=== PATIENT | female | born 1930 | race Caucasian/White ===

== ENCOUNTER 2018-09-23 15:05 | Emergency (ER) | payer OTHER ==
[~2018-09-23] VITALS: Ht 157.5 cm; Wt 98.9 kg
[~2018-09-23 15:05] MED LIST: ASPI81CH PO; ASPI81EC PO; ATEN100; ATEN100 PO; ATEN50 PO; ATOR10; ATOR20 PO; BUME1 PO; CEPH500 PO; CIPR250 PO; Cleocin HCl150 MG PO; Duoneb 2.5-0.5 M3 ML INH; FLUT44OIA INH; FURO40 PO; HYDR1TAB94 PO; LOSA25 PO; MECL25 PO; METF500 PO; Norco 5-325 Ta1 EACH PO; ONDA4ODT MM; OTC EYE VITAMIN; POTA10T PO; POTCHL20ER PO; PRED10 PO; PRED5 PO; Prednisone10 MG PO; WARF10; WARF2 PO; WARF5 PO; WARF7.5 PO; Zithromax250 MG PO; Zofran Odt4 MG SL
[2018-09-23 16:18] LABS: BASOPHILS ABSOLUTE AUTO 0.06 K/mm3 (0.00-0.23); BASOPHILS PERCENT AUTO 0 % (0-2); EOSINOPHILS ABSOLUTE AUTO 0.34 K/mm3 (0.00-0.68); EOSINOPHILS PERCENT AUTO 2 % (0-6); Hematocrit 45.2 % (33.0-51.0); Hemoglobin 14.7 g/dL (11.5-16.0); IMMATURE GRAN ABSOLUTE AUTO 0.08 K/mm3 (0.00-0.10); IMMATURE GRAN PERCENT AUTO 1 % (0-1); LYMPHOCYTES ABSOLUTE AUTO 3.35 K/mm3 (0.84-5.20); LYMPHOCYTES PERCENT AUTO 24 % (21-46); MONOCYTES ABSOLUTE AUTO 1.31 K/mm3 (0.16-1.47); MONOCYTES PERCENT AUTO 9 % (4-13); Mean Corpuscular HGB 29.6 pg (26.0-34.0); Mean Corpuscular HGB Conc 32.5 g/dL (31.5-36.5); Mean Corpuscular Volume 91 fL (80-100); NEUTROPHILS ABSOLUTE AUTO 9.07 K/mm3 (1.96-9.15); NEUTROPHILS PERCENT AUTO 64 % (41-73); Platelet Count 63 K/mm3 (150-400); RDW Coefficient Variation 12.8 % (11.7-14.2); RDW Standard Deviation 42.4 fL (35.1-46.3); Red Blood Cell Count 4.97 M/mm3 (3.80-5.20); White Blood Cell Count 14.21 K/mm3 (4.00-11.30)
[2018-09-23 16:35] LABS: Albumin, Blood 3.4 g/dL (3.4-5.0); Albumin/Globulin Ratio 0.8 (0.8-1.8); Bilirubin, Total 1.2 mg/dL (0.1-1.0); Bun/Creatinine Ratio 10.5 (12.0-20.0); Calcium, Blood 8.9 mg/dL (8.5-10.1); Creatinine, Blood 0.96 mg/dL (0.40-1.00); Globulin, Blood 4.2 g/dL (2.2-4.0); Potassium, Blood 3.8 mmol/L (3.5-5.5); Total Protein, Blood 7.6 g/dL (6.4-8.2)
[2018-09-23] MEDS ORDERED: Bactrim Ds Tab1 EACH PO (17:11)
[2018-09-23] MEDS ORDERED: CEPH500 PO (17:11)
== END 2018-09-23 17:56 | disposition home or self-care (01) ==
LOC: ER 15:05
PROVIDERS: Emergency Medicine
DX: L03.115 Cellulitis of right lower limb (principal); I10 Essential (primary) hypertension; Z79.899 Other long term (current) drug therapy
CPT/HCPCS: 36415; 80053; 85025; 96365; 99283-25; J0690

== ENCOUNTER 2019-01-03 09:44 | Emergency (ER) | payer OTHER ==
[~2019-01-03] VITALS: Ht 157.5 cm; Wt 113.4 kg
[~2019-01-03 09:44] MED LIST changes: +Bactrim Ds Tab1 EACH PO
[2019-01-03] MEDS ORDERED: GABA300T24 (09:55)
[2019-01-03] MEDS ORDERED: OXYB5 PO (09:57)
[2019-01-03] MEDS ORDERED: VALA500 PO (10:32)
[2019-01-03] MEDS ORDERED: CORTISONE60 GM TOP (10:32)
== END 2019-01-03 11:34 | disposition home or self-care (01) ==
LOC: ER 09:44
DX: B02.9 Zoster without complications (principal); I10 Essential (primary) hypertension; Z86.718 Personal history of other venous thrombosis and embolism; Z91.030 Bee allergy status; Z79.899 Other long term (current) drug therapy; Z79.82 Long term (current) use of aspirin
CPT/HCPCS: 99283

== ENCOUNTER 2019-02-19 00:45 | Emergency (ER) | payer OTHER ==
[~2019-02-19] VITALS: Ht 157.5 cm; Wt 108.9 kg
[~2019-02-19 00:45] MED LIST changes: +CORTISONE60 GM TOP; +GABA300T24; +OXYB5 PO; +VALA500 PO
== END 2019-02-19 02:37 | disposition home or self-care (01) ==
LOC: ER 00:45
DX: S80.212A Abrasion, left knee, initial encounter (principal); W06.XXXA Fall from bed, initial encounter; Z91.030 Bee allergy status; Z79.899 Other long term (current) drug therapy; Z79.82 Long term (current) use of aspirin; Z79.01 Long term (current) use of anticoagulants; I10 Essential (primary) hypertension
CPT/HCPCS: 99283